=== PATIENT | female | born 1995 | race Caucasian/White ===

== ENCOUNTER 2018-12-29 19:12 | Emergency (ER) | payer SELFPAY ==
--- NOTE | 2018-12-29 19:55 | RAD ---
EXAM: Chest 2 views: HISTORY: Difficulty breathing COMPARISON: None. FINDINGS: There is a normal-sized cardiomediastinal silhouette. There is no evidence of consolidation, mass, or pleural effusion. The bones are unremarkable. IMPRESSION: No evidence of acute cardiopulmonary disease
== END 2018-12-29 20:17 | disposition home or self-care (01) ==
LOC: MADERS 19:12
DX: R06.00 Dyspnea, unspecified (principal); G43.909 Migraine, unspecified, not intractable, without status migrainosus
CPT/HCPCS: 71046